=== PATIENT | female | born 1990 | race Caucasian/White ===

== ENCOUNTER 2017-11-29 01:19 | Emergency (ER) | payer BC, MEDICAID, SELFPAY ==
[2017-11-29 01:21] VITALS: BP 132/77; PULSE 120; RESP 17; TEMP 37.2; O2SAT 95; BMI 21.5
--- NOTE | 2017-11-29 02:52 | EKG12_ITS ---
Test Reason : SOB Blood Pressure : / mmHG Vent. Rate : 083 BPM Atrial Rate : 083 BPM P-R Int : 142 ms QRS Dur : 076 ms QT Int : 372 ms P-R-T Axes : 060 025 -06 degrees QTc Int : 437 ms Normal sinus rhythm with sinus arrhythmia Nonspecific T wave abnormality Abnormal ECG Confirmed by REE FORD, KASIA ([id number]), health editor RAJEEV HARO ([id number]) on 11/30/2017 3:33:50 PM Referred By: SHARMILA Confirmed By:KASIA KEENAN MD
--- NOTE | 2017-11-29 02:53 | RAD_ITS ---
STUDY: X-RAY CHEST REASON FOR EXAM: Female, 27 years old. Cough TECHNIQUE: 2 views COMPARISON: None. FINDINGS: The lungs are clear and expanded. There is no demonstrated pleural abnormality. Normal size heart. Normal mediastinum and pb. Normal visualized pulmonary arteries. Normal visualized aortic arch and descending thoracic aorta. Normal visualized thoracic spine. Normal visualized ribs, clavicles, and shoulders. There is no demonstrated abnormality of the visualized soft tissue structures of the upper abdomen. RAD/Chest PA and Lateral IMPRESSION: Normal x-ray examination of the chest.. No acute findings in the lungs Electronically Signed: Ranulfo Feliz, at 4:06 EDT Tel , Service support ,
[2017-11-29 03:10] LABS: Absolute Lymphocyte Count 1.05 X10^3/ul (0.83-4.51); Absolute Neutrophil Count 10.7 X10^3/uL (2.0-7.7); Basophil# 0.01 X10^3/uL; Basophil% 0.1 % (0-1); Eosinophil# 0.01 X10^3/uL; Eosinophils% 0.1 % (0-5); Hematocrit 38.4 % (37-47); Hemoglobin 13.3 g/dl (12.0-15.0); Lymphocyte # 1.05 X10^3/ul (4.0); Lymphocyte % 8.8 % (19-41); Mean Corp Hgb Conc 34.6 g/gl (32-36); Mean Corpuscular Hgb 31.4 pg (27.0-32.0); Mean Corpuscular Volume 90.6 fL (81-99); Mean Platelet Vol. 9.2 fl (6.2-12.0); Monocyte# 0.11 X10^3/uL; Monocyte% 0.9 % (0-10); Neutrophil # 10.69 X10^3/uL (2.7-7.7); Neutrophil % 89.9 % (47-70); Platelet Count 236 K/mm3 (150-450); RBC Distribution Width CV 12.1 % (11.6-14.6); RBC Distribution Width SD 39.1 fl (35.1-43.9); Red Blood Count 4.24 M/mm3 (4.2-5.4); White Blood Count 11.9 K/mm3 (4.4-11.0)
[2017-11-29 03:14] LABS: POSITIVE COUNT NO; POSITIVE MORPHOLOGY NO
[2017-11-29 03:26] LABS: D-Dimer Quantitative (DVT/PE) 2.66 FEU/ug/m (0.27-0.49)
--- NOTE | 2017-11-29 03:29 | ED.RN ---
this rn received call from lab pt d-dimer 2.66. dr. vickers.
--- NOTE | 2017-11-29 03:33 | CT_ITS ---
STUDY: CTA CHEST REASON FOR EXAM: Female, 27 years old. Cough and shortness of breath RADIATION DOSAGE (If Supplied By Facility): CTDIvol = ( 10.19 ) mGy, DLP = ( 351.87 ) mGycm TECHNIQUE: The examination was performed with the intravenous administration of 75ML ml of Isovue 370 contrast material. Post-processing of the angiographic images was performed, with multiplanar reformation and 3D reconstruction. Individualized dose optimization techniques were used for this CT. COMPARISON: None. FINDINGS: : TRACHEA, THYROID, ESOPHAGUS: No tracheomalacia,stricture or wall thickening. Thyroid and esophagus are normal CARDIOVASCULAR SYSTEM:The thoracic aorta is normal with no aneurysm, dissection or developmental anomalies. The pulmonary trunk and the left and right pulmonary arteries and their lobar and segmental branches do not show any abnormal and persistent filling defects in them. There is therefore no evidence of pulmonary embolism. The heart is normal. There are no venous anomalies KUSH AND LYMPH NODES: No hilar masses and no mediastinal, hilar, axillary or supraclavicular adenopathy LUNGS, LOW-ATTENUATION: No traction bronchiectasis, honeycombing,emphysema, lung cysts or cavitations LUNGS, HIGH ATTENUATION: No nodules/masses, ground glass opacities/consolidations or increased interstitial markings LUNGS, MOSAIC/CRAZY PAVING: Not evident PLEURA AND CHEST WALL: No plural effusions, pneumothoraces,rib fractures or any osteolytic/osteoblastic changes . The soft tissue chest wall including the breasts are normal UPPER ABDOMEN: Unremarkable:. CT/CTA Chest W/WO Contrast IMPRESSION: Normal CTA chest examination, without a demonstrated pulmonary embolism or arterial dissection. No acute findings in the lungs Electronically Signed: Ranulfo Feliz, at 5:14 EDT Tel , Service support ,
[2017-11-29 03:35] LABS: Anion Gap 7 (5-15); BUN 14 mg/dL (7-18); BUN/Creat Ratio 18.1 RATIO (10-20); Calcium,Total 8.5 mg/dL (8.5-10.1); Chloride 110 mmol/L (98-107); Creatinine, Serum 0.77 mg/dL (0.55-1.02); EST Glomerular Filtration Rate 97 mL/min (>60); Est Glom Filt Rate - Afr Amer 117 mL/min (>60); Estimated Creatinine Clearance 96.45 ml/min; Glucose 148 mg/dL (74-106); Potassium 4.1 mmol/L (3.5-5.1); Sodium Level 140 mmol/L (136-145)
[2017-11-29 03:51] LABS: Pregnancy, Serum, hCG Quali. NEGATIVE Negative (0-9 Nonpreg)
--- NOTE | 2017-11-29 05:21 | ED.VISSUMM ---
- ER Visit Summary Date of Service: 11/29/17 Chief Complaint: Cough History of Present Illness: The patient is a 27 F hoarse cough for the past 3 weeks. Today increasing dyspnea with difficulty getting a deep breath. Last menstrual period 2 weeks ago. Complains of sweats. No chest pains. No recent travel, surgeries, or immobilizations. No history of PE or DVT. Saw the urgent care earlier today was started on Augmentin and prednisone status post 1 dose. Denies tobacco history. No oral contraceptives. No previous similar symptoms. No other complaints. Physical Examination: General: Alert and oriented ?3, no acute distress HEENT: Normocephalic, atraumatic. Moist mucosa membranes Neck: supple, nontender. Cardiovascular: Regular rate 96 and rhythm, no murmurs Respiratory: Normal breath sounds, symmetric, no distress Abdomen: Soft, nontender, nondistended Extremities: Nontender, no edema, pulses intact ?4 Neuro: no focal neurological deficits. Test Results: EKG sinus rate of 83, no ST changes. Isolated T-wave inversion in lead III. D-dimer 2. White count 11.9. HCG negative. Creatinine 0.77. Chest x-ray: Negative. CTA chest: No PE or dissection. Emergency Department Course and Treatment: Patient initial triage heart rate was 120. Normalized on my evaluation. EKG obtained in sinus rhythm. Workup initiated. Chest x-ray negative. Low risk Wells criteria for PE due to elevated heart rate, d-dimer obtained which was elevated. Subsequent CTA of the chest was negative. Patient provided inhaler to use as needed. She will finish her Augmentin and prednisone started by urgent care. She is given follow-up as an outpatient. Discussed bronchitis symptoms. Treatment Plan: [] Disposition: Discharge Impression: Acute bronchitis This note was generated with [employer] dictation software. It may contain incorrect words, spelling, and punctuation that were not noted in review of the chart prior to signing ED Disposition - Plan for ED Patient: Disposition: Home or Assisted Living Chief Complaint: Shortness of Breath Diagnosis: Acute bronchitis Instructions: Acute Bronchitis Referrals: Care Physician,No Primary [Primary Care Provider] - Luis Carlos Marie MD [STAFF PHYSICIAN] - 5-7 Days Additional Instructions: Finish your Augmentin and steroids that were started by urgent care. Use inhaler as needed. Follow-up as an outpatient.
[2017-11-29 05:39] VITALS: BP 109/71; PULSE 80; RESP 20; O2SAT 96
== END 2017-11-29 05:40 | disposition home or self-care (01) ==
PROVIDERS: Emergency Provider Emergency Medicine
DX: J20.9 Acute bronchitis, unspecified (principal); R74.8 Abnormal levels of other serum enzymes; Z79.899 Other long term (current) drug therapy
CPT/HCPCS: 71046; 71275; 80048; 84703; 85025; 85379; 93005; 94640; 96360; 96361; 99285; J7030; J7040; Q9967; A4216

== ENCOUNTER → 2018-03-16 15:28 | Outpatient (CLI) | payer BC, MEDICAID, SELFPAY ==
[2018-03-16 17:10] LABS: Absolute Lymphocyte Count 2.41 X10^3/ul (0.83-4.51); Absolute Neutrophil Count 2.6 X10^3/uL (2.0-7.7); Basophil# 0.02 X10^3/uL; Basophil% 0.4 % (0-1); Eosinophil# 0.09 X10^3/uL; Eosinophils% 1.6 % (0-5); Hematocrit 39.5 % (37-47); Hemoglobin 13.4 g/dl (12.0-15.0); Lymphocyte # 2.41 X10^3/ul (4.0); Lymphocyte % 43.5 % (19-41); Mean Corp Hgb Conc 33.9 g/gl (32-36); Mean Corpuscular Volume 94.3 fL (81-99); Mean Platelet Vol. 10.3 fl (6.2-12.0); Monocyte# 0.44 X10^3/uL; Monocyte% 7.9 % (0-10); Neutrophil # 2.58 X10^3/uL (2.7-7.7); Neutrophil % 46.6 % (47-70); POSITIVE COUNT NO; POSITIVE DIFFERENTIAL NO; POSITIVE MORPHOLOGY NO; Platelet Count 185 K/mm3 (150-450); RBC Distribution Width SD 43.5 fl (35.1-43.9); Red Blood Count 4.19 M/mm3 (4.2-5.4); White Blood Count 5.5 K/mm3 (4.4-11.0)
[2018-03-16 17:30] LABS: ALB/GLOB Ratio 0.9 RATIO (0.9-2.4); AST(SGOT) 14 U/L (15-37); Alanine Aminotransfer ALT/SGPT 20 U/L (13-56); Albumin, Serum 3.7 g/dL (3.2-5.0); Alkaline Phosphatase 52 U/L (45-117); Anion Gap 8 (5-15); BUN 13 mg/dL (7-18); BUN/Creat Ratio 16.8 RATIO (10-20); CPK Total, Creatine Kinase 48 U/L (26-192); Calcium,Total 8.5 mg/dL (8.5-10.1); Chloride 109 mmol/L (98-107); Creatinine, Serum 0.78 mg/dL (0.55-1.02); EST Glomerular Filtration Rate 96 mL/min (>60); Est Glom Filt Rate - Afr Amer 116 mL/min (>60); Glucose 80 mg/dL (74-106); Potassium 3.8 mmol/L (3.5-5.1); Protein, Total 7.7 g/dL (6.4-8.2); Sodium Level 140 mmol/L (136-145); Thyroid Stim Hormone (TSH) 2.64 uIU/mL (0.358-3.74)
[2018-03-17 08:40] LABS: Vitamin B12 460 pg/mL (211-911); Vitamin D,25 Hydroxy 16.6 ng/mL (29.95-100.01)
== END ==
PROVIDERS: Visit Provider Family Medicine
DX: R53.83 Other fatigue (principal); M62.89 Other specified disorders of muscle
CPT/HCPCS: 36415; 80053; 82306; 82550; 82607; 84443; 85025

== ENCOUNTER → 2018-05-16 11:47 | Outpatient (CLI) | payer BC, MEDICAID, SELFPAY ==
[2018-05-16 15:23] LABS: Thyroid Stim Hormone (TSH) 1.44 uIU/mL (0.358-3.74)
== END ==
PROVIDERS: Family Provider Family Medicine; PCP Family Medicine; Visit Provider Family Medicine
DX: L65.9 Nonscarring hair loss, unspecified (principal)
CPT/HCPCS: 36415; 84443

== ENCOUNTER → 2018-06-27 09:02 | Outpatient (CLI) | payer BC, SELFPAY | PROVIDERS: Family Provider Family Medicine; PCP Family Medicine; Referring Provider Family Medicine; Visit Provider Family Medicine | DX: R00.2 Palpitations (principal) | CPT/HCPCS: 93225; 93226 ==

== ENCOUNTER → 2019-08-10 14:09 | Outpatient (CLI) | payer BC, SELFPAY ==
[2019-08-10 16:00] LABS: Absolute Lymphocyte Count 2.62 X10^3/uL (0.83-4.51); Absolute Neutrophil Count 4.7 X10^3/uL (2.0-7.7); Basophil# 0.04 X10^3/uL; Basophil% 0.5 % (0-1); Eosinophil# 0.19 X10^3/uL; Eosinophils% 2.3 % (0-5); Hematocrit 38.9 % (37-47); Hemoglobin 12.8 g/dL (12.0-15.0); Lymphocyte # 2.62 X10^3/ul (4.0); Lymphocyte % 31.8 % (19-41); Mean Corp Hgb Conc 32.9 g/dL (32-36); Mean Corpuscular Hgb 31.1 pg (27.0-32.0); Mean Corpuscular Volume 94.6 fL (81-99); Monocyte# 0.66 X10^3/uL; NRBC Flagged by Analyzer 0 % (0-5); Neutrophil # 4.69 X10^3/uL (2.7-7.7); POSITIVE MORPHOLOGY YES; Platelet Count 230 K/mm3 (150-450); RBC Distribution Width CV 12.5 % (11.6-14.6); RBC Distribution Width SD 43.1 fl (35.1-43.9); Red Blood Count 4.11 M/mm3 (4.2-5.4); White Blood Count 8.2 K/mm3 (4.4-11.0)
[2019-08-10 16:06] LABS: Differential Indicated SCAN CRITERIA MET
[2019-08-10 16:24] LABS: Differential Comment SCANNED
[2019-08-10 16:39] LABS: AST(SGOT) 18 U/L (15-37); Alanine Aminotransfer ALT/SGPT 21 U/L (13-56); Albumin, Serum 3.8 g/dL (3.2-5.0); Alkaline Phosphatase 50 U/L (45-117); Anion Gap 8 (5-15); BUN 13 mg/dL (7-18); BUN/Creat Ratio 14.5 RATIO (10-20); Calcium,Total 8.4 mg/dL (8.5-10.1); Chloride 109 mmol/L (98-107); EST Glomerular Filtration Rate 80 mL/min (>60); Est Glom Filt Rate - Afr Amer 97 mL/min (>60); Globulin 3.9 g/dL (2.2-4.2); Glucose 79 mg/dL (74-106); Potassium 3.8 mmol/L (3.5-5.1); Protein, Total 7.7 g/dL (6.4-8.2); Sodium Level 140 mmol/L (136-145); Thyroid Stim Hormone (TSH) 3.72 uIU/mL (0.358-3.74)
[2019-08-10 16:58] LABS: Vitamin D,25 Hydroxy 19.1 ng/mL (29.95-100.01)
== END ==
PROVIDERS: Family Provider Family Medicine; PCP Family Medicine; Visit Provider Family Medicine
DX: K29.70 Gastritis, unspecified, without bleeding (principal); F31.60 Bipolar disorder, current episode mixed, unspecified; E55.9 Vitamin D deficiency, unspecified
CPT/HCPCS: 36415; 80053; 82306; 84443; 85025

== ENCOUNTER 2020-02-28 15:04 | Emergency (ER) | payer BC, SELFPAY ==
[2020-02-28 15:06] VITALS: BP 129/84; PULSE 95; RESP 16; TEMP 36.6; O2SAT 96; BMI 31.7
--- NOTE | 2020-02-28 15:41 | ED.VIS.GEN ---
History of Present Illness Chief Complaint: Back Informant: Patient Onset: Month(s) Context: Sudden Onset Timing: Continuous, Waxes and wanes Quality: Pain Location: Right lower back radiating anteriorly in the distribution of L3/L4 Current Severity: Mild Maximum Severity: Moderate Worsened by: Straightening her leg out Relieved by: Nothing Associated Symptoms: Patient reports weakness of her right thigh muscle going up and down steps Narrative: Is a 29-year-old female who presents with right low back pain that radiates anterior medial aspect of the right lower extremity to the knee. This is in the distribution of L3/L4 nerve root. She denies bowel bladder dysfunction. She denies saddle paresthesia or anesthesia. She denies foot drop. There is no history of trauma. She denies urologic symptoms. She denies fever, chills night sweats. Denies weight gain or weight loss. She states nothing helps with pain. Prior similar symptoms: No Recent Illness/Hospitalization: No - Past Medical History (1) Latex allergy, anaphylaxis Status: Acute Past Medical History - Allergies and Home Meds Allergies/Adverse Reactions: Allergies latex Allergy (Severe, Verified 02/28/20 15:05) Hives banana Adverse Reaction (Unknown, Verified 02/28/20 15:05) Nausea/Vom/Diarrhea PAPER TAPE Allergy (Intermediate, Uncoded 02/28/20 15:05) Rash Primary Care Physician: Radha Hope MD [Primary Care Provider] - Prior records reviewed: Yes Surgical History: noncontributory Lives: Alone Smoking Status: Former smoker Alcohol: None Drugs: None Review of Systems General: Denies: Chills, Fever, Subjective, Sweats Eyes: Denies: Visual changes - bilaterally, Blurred Vision - bilaterally ENT: Denies: Rhinorrhea, Sore throat Cardiovascular: Reports: Chest pain, Palpitations Respiratory: Reports: Dyspnea, Cough, Dyspnea on exertion Gastrointestinal: Reports: Abdominal pain, Nausea, Vomiting, Diarrhea Genitourinary: Denies: Dysuria, Hematuria, Frequency Musculoskeletal: Reports: Back pain, Extremity Pain. Denies: Myalgias, Arthralgias, Neck pain, Swelling, -, - Skin: Denies: Rash, Wounds Neurological: Reports: Weakness - Possible weakness right quadricep muscles going up or down steps versus pain causing leg to give out. Denies: Parasthesia, Numbness Endocrine: Denies: Polyuria, Polydipsia Hematologic: Denies: Easy bruising, Easy bleeding Physical Exam Vital Signs/Narrative: Vital Signs Temp Pulse Resp BP Pulse Ox 02/28/20 15:06 97.8 F 95 16 129/84 H 96 General: Well nourished, Well developed, Obese, No Acute Distress Head: Normocephalic, Atraumatic Eyes: Perrl, EOMI ENT: Moist mucous membranes, No rhinorrhea Neck: Supple, Nontender Cardiovascular: Regular rate, Regular rhythm, No murmurs Respiratory: No distress, CTA bilaterally, Chest nontender Abdomen: Soft, Nontender, Nondistended, Normal bowel sounds Back: Nontender, Normal Inspection Extremities: Nontender, No edema Skin: Normal color, No rash Neurological: Alert, Oriented x3, Cranial nerves II-XII grossly intact, Normal Strength, Normal Sensation, Normal DTR - Gina ankle reflex are 2+ and symmetric., - - EHL is intact. Negative straight leg test and crossover test. Positive femoral stretch test on the right along the distribution of L3/L4 nerve root. Psychological: Normal affect, Normal Mood Diagnostic/Tx/Re-eval - Medical Decision Making He was medicated with IV medication, 50 mg Toradol and 4 mg of morphine. She was administered Zofran to prevent nausea due to the morphine. Once pain has diminished significantly will have patient ambulate and determine if there is quadricep weakness. Observed patient walking to restroom without foot drop. Patient is able to perform 1 legged squat with no quadricep weakness. Patient was informed that she in all likelihood has a L3 herniated disc. She does not meet criteria for emergent MRI. She was instructed to follow-up with her PCP. She was discharged appropriate home-going medicine. ED Disposition - Plan for ED Patient: Disposition: Home or Assisted Living Diagnosis: Right low back pain due to L3 radiculopa Instructions: ED LUMBAR RADICULOPATHY Prescriptions: Naproxen [Naprosyn] 500 mg PO BID #14 tab Transmission Status: Pending to [facility]/pharmacy #[id number] Oxycodone HCl/Acetaminophen [Percocet 5/325] 1 tablet PO Q6H PRN PRN 5 Days #20 tablet PRN Reason: Back and leg pain Transmission Status: Received by [facility]pharmacy #[id number] Referrals: Radha Hope MD [Primary Care Provider] - 3-5 Days Additional Instructions: Follow-up with your primary care physician for physical therapy. If you develop weakness in your right thigh muscle or pain that is excruciating please return to the ER because you may need an emergent MRI
[2020-02-28] MEDS: Ondansetron 4 MG/2 ML Vial IV (15:51)
[2020-02-28] MEDS: Morphine 4 MG/ML Syringe IV (15:52)
[2020-02-28] MEDS: Ketorolac 15 MG/ML Vial IV (15:55)
[2020-02-28] MEDS: Mag Hydrox/Al Hydrox/Simeth 30 ML UDC PO (16:43)
[2020-02-28 19:20] VITALS: BP 117/77; PULSE 82; RESP 16; O2SAT 99
[2020-02-28 19:26] VITALS: RESP 16
--- NOTE | 2020-02-28 19:27 | ED.RN ---
REVIEWED D/C INSTRUCTIONS, FOLLOW UP CARE, PRESCRIPTIONS, AND S/S THAT WOULD WARRANT A RETURN TO THE ED WITH PT. PT VERBALIZED AN UNDERSTANDING AND DENIES FURTHER QUESTIONS FOR THIS RN. PT SKIN P/W/D, RESP EVEN AND UNLABORED, PT A&O X 3, NO DISTRESS NOTED. PT AMBULATED OUT OF ED, GAIT STEADY.
== END 2020-02-28 19:28 | disposition home or self-care (01) ==
PROVIDERS: Emergency Provider Emergency Medicine; PCP Family Medicine
DX: M54.16 Radiculopathy, lumbar region (principal); E66.9 Obesity, unspecified; Z68.31 Body mass index [BMI] 31.0-31.9, adult; Z87.891 Personal history of nicotine dependence
CPT/HCPCS: 96374; 96375; 99284; A4216; J2405

== ENCOUNTER 2020-04-08 15:00 | Outpatient (RCR) | payer BC, SELFPAY ==
--- NOTE | 2020-03-05 16:20 | HP.PTEVAL_ITS ---
Patient's Visit Information WENDIE BLAKE is a 29 year old F referred to Physical Therapy by Dr. Radha Hope MD with a diagnosis of Right Hip Pain. Date of Evaluation: 03/05/20 Physical Therapist: Ibis Nichols DPT - Visit Plan Frequency: 3x /Week Duration: 3 Weeks Plan: Aquatics- focus on core s/s and pain mgmt of lumbar spine- gentle - Subjective Right hip and back pain for about 2 months- insidious onset- pain is located in the right side of the back and radiates to the foot- the radiating pain comes and goes but the back pain is always there. Describes the pain as sharp/shooting and dull and achy. Worst: 03/28 Agg: laying down, sitting, stairs Eases: nothing really. Does have tingling like it feels like a spasm in her groin and pubic symphysis. Has had x-ray but no MRI. X-ray at [facility]- spine twisted to the right- she is seeing them 3x a week- adjustments- and has been seeing them for 2 weeks- she does not feel like its helping- plans to continue to see them- was told she needs to wait a few more weeks to see improvement. 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 Lifts up to #150- not repetitive- Some twisting when lifting- when she lifts heavy someone helps her- but does sometimes have to do it alone if no one is around. Sleep: disturbed- hard to get comfortable. Does have pains into her feet. Feels the pain is getting worse or staying the same- unsure depending on the day. Depends on how much she pushes herself. Has 2 kids- (10 and 5 years old) Vagina - 8 and 9 lbs babies- no problems with delivery. PMHx: none Meds: only change is Percoset- but has only taken 1.5 pills due to making her belly hurt (vomit). - Objective Posture: FH, RS- severe guarding. Gait: slow and decreased stance on the right LE- poor heel/toe pattern- decreased step length- no AD. ROM: Lumbar: Flexion: decreased by 75% with pain, extn to neutral with pain, SB: decreaseed by 50% with increased pain to the left- Rot: decreased by 25%. Hip: diminished by 50% in all motions with reports of severe pain- Knee/Ankle: WNL. Strength: Ankle: Left: 5/5, Right: 4-/5 with pain, Knee: Left: 5/5, Right: 4-/5 with pain, Hip: Left: 4+/5, Right: 3/5 with pain Core: poor. Special Test: slump:positive, dural signs: right positive. Flex: HS: severe, Gastroc: severe with pain. Palpation: tender along paraspinals on right into buttock area. No other tests able to be performed due to severe pain- unable to transfer without assistance and severe pain- will reassess as able throughout treatment sessions - Goals Goal 1:: Patient will be I with HEP and progression Goal Time Frame: 4-6 Weeks Goal 2:: Patient will maintain proper posture t/o tx session Goal 3:: Patient will report pain centralization Goal Time Frame: 4-6 Weeks Goal 4:: Patient will ambulate with normalized gait pattern with normal cadance. Goal Time Frame: 4-6 Weeks Goal 5:: Patient will demo proper lifting mechanics Goal Time Frame: 4-6 Weeks - Rehabilitation Potential Physical Therapy Diagnosis: Patient presents with hypomobility- she has decreased ROM, strength, flex and muscular endurance leading to poor posture and increased pain with ADL's with positive dural signs on the right. Rehabilitation Potential: Fair - Anticipated Interventions Patient/Client Instruction: Educate patient on: Benefits of Fitness Program Therapeutic Exercise to Include: Strength training, Endurance training, Coordi nation, Agility training, Body mechanics, Postural training, Flexibilty training, Gait and locomotor training, In an aquatic setting, Passive ROM, Active ROM, Dynamic Lumbar Stabilization For the Purpose of:: To improve muscle performance and motor function Thank you for the opportunity to evaluate your patient. For Medicare and Medicare HMO plans, please review the plan of care and approve it. It will need to be FAXED BACK to us at [phone] for Medicare purposes. For Medicare only, by signing this I certify the plan of care. Please let me know if there are questions or concerns regarding this plan of care. Physician Signature: Date:
--- NOTE | 2020-04-01 16:49 | HP.PTREVAL ---
Dr. Radha Hope MD, It has been my pleasure to treat WENDIE BLAKE over the last 7 visits for Right Hip Pain. Please see the progress note below for an update on the physical therapy plan of care! Subjective: Patient reports that she is not terrible. Better than she was still a little achy but tolerable. If she stands or sits for to long she has to move to get away from it. Worst: 2/10 Best: 0/10. Objective/Function: Posture: fair throughout. Gait: no deviation noted. Palpation: not tender. ROM: WFL in all planes. Strength: Core: fair, Hip: flexion: 4/5, extn: 4+/5, add/abd: 4+/5, Ir/ER:4-/5 Plan Plan: *GENTLE*. *f/u with new HEP pirifromis and hip flexor/quad stretch. *Aquatics- focus on core s/s and pain mgmt of lumbar spine- gentle. 04/01/2020: Continue 2x a week for 4 weeks Goals Goal 1:: Patient will be I with HEP and progression Goal Time Frame: 4-6 Weeks Goal Progress: Progressing Goal 2:: Patient will maintain proper posture t/o tx session Goal Progress: Progressing Goal 3:: Patient will report pain centralization Goal Time Frame: 4-6 Weeks Goal Progress: Progressing Goal 4:: Patient will ambulate with normalized gait pattern with normal cadance. Goal Time Frame: 4-6 Weeks Goal Progress: Goal Met Goal 5:: Patient will demo proper lifting mechanics Goal Time Frame: 4-6 Weeks Goal Progress: Progressing Anticipated Interventions Patient/Client Instruction: Educate patient on: Benefits of Fitness Program Therapeutic Exercise to Include: Strength training, Endurance training, Coordination, Agility training, Body mechanics, Postural training, Flexibilty training, Gait and locomotor training, In an aquatic setting, Passive ROM, Active ROM, Dynamic Lumbar Stabilization For the Purpose of:: To improve muscle performance and motor function Please do not hesitate to contact me at [phone] by phone or if you have questions or concerns regarding this new plan of care! Sincerely, Ibis Nichols DPT
--- NOTE | 2020-06-16 14:45 | HP.PT.NRP ---
WENDIE Jay LUO was seen in my office for initial evaluation on 03/05/20. The following Plan of Care was established for this patient: Initial Frequency: 3x /Week Initial Duration: 3 Weeks Patient/Client Instruction: Educate patient on: Benefits of Fitness Program Therapeutic Exercise to Include: Strength training, Endurance training, Coordination, Agility training, Body mechanics, Postural training, Flexibilty training, Gait and locomotor training, In an aquatic setting, Passive ROM, Active ROM, Dynamic Lumbar Stabilization For the Purpose of:: To improve muscle performance and motor function This patient was last seen in our office . Pertinent comments regarding their Physical therapy will appear below: Patient has not returned to PT in over 6 weeks- appropriate for d/c and return to MD for further evaluation as needed. At this point I will be discontinuing this patient from physical therapy. I would be happy to see this patient again in the future if found appropriate by the physician. Thank you! Ibis Nichols DPT
== END 2020-04-08 19:00 | disposition home or self-care (01) ==
LOC: PT 15:00
PROVIDERS: PCP Family Medicine; Referring Provider Family Medicine; Visit Provider Family Medicine
DX: M25.551 Pain in right hip (principal)
CPT/HCPCS: 97014; 97113; 97162; 97164; G0283

== ENCOUNTER → 2020-07-11 16:50 | Outpatient (CLI) | payer BC, SELFPAY | PROVIDERS: PCP Family Medicine; Referring Provider Physician Assistant; Visit Provider Physician Assistant | DX: Z20.828 Contact with and (suspected) exposure to other viral communicable diseases (principal) | CPT/HCPCS: 87635; C9803; U0003 ==

== ENCOUNTER → 2020-07-22 10:50 | Outpatient (CLI) | payer BC, SELFPAY | PROVIDERS: PCP Family Medicine; Referring Provider Family Medicine; Visit Provider Family Medicine | DX: Z03.818 Encounter for observation for suspected exposure to other biological agents ruled out (principal) | CPT/HCPCS: 87635; C9803; U0003 ==

== ENCOUNTER 2022-06-29 10:28 | Emergency (ER) | payer OTHER, SELFPAY ==
[2022-06-29 10:29] VITALS: BP 124/83; PULSE 92; RESP 18; TEMP 36.6; O2SAT 97; BMI 31.7
--- NOTE | 2022-06-29 10:45 | EKG12_ITS ---
Test Reason : CP Blood Pressure : / mmHG Vent. Rate : 065 BPM Atrial Rate : 065 BPM P-R Int : 150 ms QRS Dur : 080 ms QT Int : 376 ms P-R-T Axes : 053 021 -07 degrees QTc Int : 391 ms Normal sinus rhythm with sinus arrhythmia Normal ECG Confirmed by JOANNA FORD, ALESHA ([id number]), movie editor TANK HALL ([id number]) on 07/01/2022 12:57:24 PM Referred By: PORFIRIO Confirmed By:ALESHA MARSHALL MD
--- NOTE | 2022-06-29 10:46 | EDS_ITS ---
HPI History of Present Illness Chief Complaint: Chest Pain Detail of Chief Complaint: Fluttering in chest Informant: patient Narrative Narrative: Patient presents to the emergency department complaint of fluttering in her chest that started yesterday when she woke up. Patient feels intermittent fluttering. She denies any pain. She denies shortness of breath. She denies recent illness. She denies any new medications. No history of thyroid disorder. Patient has not had recent travel or surgery. She denies excessive caffeine intake. Prior similar symptoms: No PFSH PFSH Medical History (Updated 06/29/22 @ 11:[address] Myles Escobedo, DO) Bipolar disorder Home Medications clonazepam 0.5 mg tablet 0.25 mg PO BID PRN Anxiety 01/29/17 [History Last Taken Unknown] naproxen 500 mg tablet 500 mg PO BID #14 tabs 02/28/20 [Rx Last Taken Unknown] Allergy/AdvReac Type Severity Reaction Status Date / Time latex Allergy Severe Hives Verified 06/29/22 10:31 banana AdvReac Unknown Nausea/Vom/ Verified 06/29/22 10:31 Diarrhea PAPER TAPE Allergy Intermediate Rash Uncoded 06/29/22 10:31 Social History (Updated 09/06/17 @ 10:58 by Jonah YATES, PA) Smoking Status: Never smoker ROS ROS ED Review of Systems ROS Unobtainable: other Constitutional Constitutional ED: Reports lethargy; Denies chills, fever(s), sweats or weight loss Eyes Eyes: Denies blurry vision, change in vision or diplopia ENT ENT ED: Denies rhinorrhea or sore throat Cardiovascular Cardiovascular: Reports palpitations; Denies chest pain, orthopnea or racing heartbeat Respiratory/Chest Respiratory/Chest: Denies cough, dyspnea, dyspnea on exertion, orthopnea or sputum Gastrointestinal Gastrointestinal: Denies abdominal pain, diarrhea, nausea or vomiting Genitourinary Genitourinary ED: Denies dysuria, hematuria or urinary frequency Musculoskeletal Musculoskeletal: Denies arthralgias, back pain, myalgias or neck pain Integumentary Denies abscess, Abrasions or rash Neurologic Neurologic: Denies headache(s) or weakness Psychiatric Psychiatric: Denies anxiety, depression or suicidal thoughts Endocrine Endocrinology: Denies polydipsia, polyphagia or polyuria Hematologic/Lymphatic Hematologic/Lymphatic: Denies easy bleeding, easy bruising or lymphadenopathy Allergic/Immunologic Allergic/Immunologic ED: Denies mouth swelling, tongue swelling or urticaria EXAM Physical Exam Const Vital Signs: 06/29/22 10:29 06/29/22 11:05 06/29/22 11:30 Temperature 97.9 F Temperature Source Temporal Pulse Rate 92 79 Respiratory Rate 18 16 Respiratory Pattern Normal Blood Pressure 124/83 H 108/79 Blood Pressure Mean 96 88 Pulse Ox 97 100 Oxygen Delivery Method Room Air Room Air Positive well nourished and well developed General Appearance ED: well developed and NAD HEENT Reports TM's clear and moist mucous membranes normocephalic and atraumatic; Negative for trauma or tenderness Tympanic Membrane ED: Yes TM's clear Eyes PERRL and EOMs intact bilaterally General Eye ED: Negative for pale conjunctiva or scleral icterus Neck no lymphadenopathy, supple and no JVD General: Negative for tenderness Chest Wall inspection of chest normal and palpation of chest normal Chest: Negative for tenderness Resp normal respiratory effort and clear to auscultation bilaterally Effort and Inspection: Negative for respiratory distress or pain with movement Auscultation: Negative for rhonchi, wheezes or diminished lung sounds Cardio regular rate, regular rhythm, S1 normal heart sound, S2 normal heart sound and no murmurs Rate: other Other Details: Occasional ectopy noted Peripheral Pulses: pulses 2+ throughout GI normal to inspection, nondistended, normoactive bowel sounds, soft to palpation, non-tender, non-distended and no masses Back/Spine no CVA tenderness and no thoracic nor lumbar tenderness Extremity normal to inspection General Extremety ED: Negative for edema General Extremity: Negative for edema Neuro oriented x3, CN's II-XII intact bilaterally, no sensory deficits noted and gait normal Sensorium / Orientation: awake, alert, oriented to person, oriented to place and oriented to time Motor Exam: strength 5/5 throughout and strength abnormal Psych mental status grossly normal Skin no rashes or lesions noted and no wounds MDM MDM MDM Narrative Medical decision making narrative: Patient with frequent PACs and occasional PVCs noted. Lab work-up was unremarkable including TSH as well as magnesium. This point etiology of ectopy unclear. She is referred to cardiology for follow-up if they persist. She is advised to avoid caffeine. Lab Data Attestation: I reviewed the patient's lab results. Labs: Laboratory Results - last 24 hr 06/29/22 06/29/22 11:00 11:00 WBC 7.3 RBC 4.28 Hgb 13.0 Hct 39.4 MCV 92.1 MCH 30.4 MCHC 33.0 RDW Std Deviation 42.9 RDW Coeff of Bobo 12.8 Plt Count 244 MPV 9.3 Immature Gran % (Auto) 0.300 Neut % (Auto) 58.3 Lymph % (Auto) 33.9 [place] % (Auto) 6.5 Eos % (Auto) 0.7 Baso % (Auto) 0.3 Absolute Neuts (auto) 4.2 Absolute Lymphs (auto) 2.46 Nucleated RBC % 0 Sodium 140 Potassium 3.6 Chloride 107 Carbon Dioxide 29.0 Anion Gap 4 L BUN 8 Creatinine 0.91 Estim Creat Clear Calc 78.77 Est GFR (MDRD) Af Amer 93 Est GFR (MDRD) Non-Af 77 BUN/Creatinine Ratio 8.8 L Glucose 94 Calcium 9.2 Magnesium 2.1 Troponin I High Sens 3 TSH 3.40 EKG Initial EKG: Attestation: I personally reviewed and interpreted this EKG as follows: Comments: Sinus rhythm with a ventricular rate of 65 bpm with occasional PACs Discharge Plan Triage Chief Complaint: Chest Pain ED Provider: Myles Escobedo Dx/Rx/DC Orders Clinical Impression: Heart palpitations, PAC (premature atrial contraction) Instructions: PVCs, ED Palpitations Prescriptions: No Action clonazepam 0.5 MG tablet 0.25 mg PO BID PRN (Reason: Anxiety) Rx Instructions: pt states she had not taken in a month naproxen 500 MG tablet 500 mg PO BID Qty: 14 0RF Primary Care Provider: Rodrigo Mehta Referrals: Chris Benson MD [Med Staff - Active Staff] - 3-5 Days Rodrigo Mehta [Primary Care Provider] - Disposition Disposition: Home, Self Care
[2022-06-29 11:07] LABS: Absolute Lymphocyte Count 2.46 X10^3/uL (0.83-4.51); Absolute Neutrophil Count 4.2 X10^3/uL (2.0-7.7); Basophil# 0.02 X10^3/uL; Basophil% 0.3 % (0-1); Eosinophil# 0.05 X10^3/uL; Eosinophils% 0.7 % (0-5); Hematocrit 39.4 % (37-47); Lymphocyte # 2.46 X10^3/ul (0.83-4.51); Lymphocyte % 33.9 % (19-41); Mean Corpuscular Hgb 30.4 pg (27.0-32.0); Mean Corpuscular Volume 92.1 fL (81-99); Mean Platelet Vol. 9.3 fl (6.2-12.0); Monocyte# 0.47 X10^3/uL; Monocyte% 6.5 % (0-10); NRBC Flagged by Analyzer 0 % (0-5); Neutrophil # 4.23 X10^3/uL (2.7-7.7); Neutrophil % 58.3 % (47-70); Platelet Count 244 K/mm3 (150-450); RBC Distribution Width CV 12.8 % (11.6-14.6); RBC Distribution Width SD 42.9 fl (35.1-43.9); Red Blood Count 4.28 M/mm3 (4.2-5.4); White Blood Count 7.3 K/mm3 (4.4-11.0)
[2022-06-29 11:30] VITALS: BP 108/79; PULSE 79; RESP 16; O2SAT 100
[2022-06-29 11:32] LABS: Anion Gap 4 (5-15); BUN 8 mg/dL (7-18); BUN/Creat Ratio 8.8 RATIO (10-20); Calcium,Total 9.2 mg/dL (8.5-10.1); Chloride 107 mmol/L (98-107); Creatinine, Serum 0.91 mg/dL (0.55-1.02); EST Glomerular Filtration Rate 77 mL/min (>60); Est Glom Filt Rate - Afr Amer 93 mL/min (>60); Estimated Creatinine Clearance 78.77 ml/min; Glucose 94 mg/dL (74-106); Magnesium 2.1 mg/dL (1.6-2.6); Potassium 3.6 mmol/L (3.5-5.1); Sodium Level 140 mmol/L (136-145); Troponin-I HS 3 pg/mL (3.0-54.0)
[2022-06-29 12:20] VITALS: BP 106/76; PULSE 74; RESP 16; O2SAT 99
== END 2022-06-29 12:21 | disposition home or self-care (01) ==
PROVIDERS: Emergency Provider Emergency Medicine; Visit Provider Emergency Medicine
DX: I49.1 Atrial premature depolarization (principal)
CPT/HCPCS: 80048; 83735; 84443; 84484; 85025; 93005; 99284

== ENCOUNTER → 2024-01-04 | Outpatient (CLI) | payer OTHER, SELFPAY ==
[2024-01-04 12:55] LABS: Erythrocyte Sedimentation Rate 16 mm/hr (0-30)
[2024-01-04 12:57] LABS: Absolute Lymphocyte Count 2.76 X10^3/uL (0.83-4.51); Absolute Neutrophil Count 4.1 X10^3/uL (2.0-7.7); Basophil# 0.03 X10^3/uL; Basophil% 0.4 % (0-1); Eosinophil# 0.06 X10^3/uL; Eosinophils% 0.8 % (0-5); Hematocrit 40.3 % (37-47); Lymphocyte # 2.76 X10^3/ul (0.83-4.51); Lymphocyte % 36.8 % (19-41); Mean Corp Hgb Conc 32.3 g/dL (32-36); Mean Corpuscular Hgb 29.7 pg (27.0-32.0); Mean Platelet Vol. 9.3 fl (6.2-12.0); Monocyte# 0.53 X10^3/uL; Monocyte% 7.1 % (0-10); NRBC Flagged by Analyzer 0 % (0-5); Neutrophil % 54.6 % (47-70); Platelet Count 334 K/mm3 (150-450); RBC Distribution Width CV 12.3 % (11.6-14.6); RBC Distribution Width SD 41.4 fl (35.1-43.9); Red Blood Count 4.38 M/mm3 (4.2-5.4); White Blood Count 7.5 K/mm3 (4.4-11.0)
[2024-01-04 13:05] LABS: ALB/GLOB Ratio 0.9 RATIO (0.9-2.4); AST(SGOT) 15 U/L (15-37); Alanine Aminotransfer ALT/SGPT 34 U/L (13-56); Albumin, Serum 3.7 g/dL (3.2-5.0); Alkaline Phosphatase 80 U/L (45-117); Anion Gap 4 (5-15); BUN 10 mg/dL (7-18); BUN/Creat Ratio 10.6 RATIO (10-20); CRP 4.18 mg/L (0.0-3.0); Calcium,Total 9.2 mg/dL (8.5-10.1); Chloride 105 mmol/L (98-107); Creatinine, Serum 0.94 mg/dL (0.55-1.02); EST Glomerular Filtration Rate 73 mL/min (>60); Est Glom Filt Rate - Afr Amer 89 mL/min (>60); Globulin 4.3 g/dL (2.2-4.2); Glucose 93 mg/dL (74-106); Potassium 4.1 mmol/L (3.5-5.1); Rheumatoid Factor < 10.0 IU/mL (<15); Sodium Level 137 mmol/L (136-145)
[2024-01-04 13:39] LABS: Hepatitis B Surface Antibody Non-Reactive; Hepatitis B Surface Antigen Non-Reactive (Nonreactive); Hepatitis C Antibody Non-Reactive (Nonreactive)
[2024-01-05 13:52] LABS: CCP IgG Antibodies 7 units (0-19)
== END | disposition home or self-care (01) ==
LOC: MTLAB 09:27
PROVIDERS: Referring Provider Internal Medicine Rheumatology; Visit Provider Internal Medicine Rheumatology
DX: M06.4 Inflammatory polyarthropathy (principal); M79.7 Fibromyalgia
CPT/HCPCS: 36415; 80053; 85025; 85652; 86140; 86200; 86431; 86706; 86803; 87340